=== PATIENT | male | born 1990 | race Caucasian/White ===

== ENCOUNTER 2017-04-15 19:26 | Emergency (ER) | payer OTHER ==
[~2017-04-15] VITALS: Ht 188 cm; Wt 117.5 kg
[2017-04-15 20:30] VITALS: BP 142/82
[2017-04-15 21:30] VITALS: BP 138/72
[2017-04-15] MEDS ORDERED: Bactrim DS (160mg/800mg) tab ORAL ONE (21:45)
[2017-04-15] MEDS ORDERED: IBUPROFEN600 MG ORAL (21:48)
[2017-04-15] MEDS ORDERED: BACTRIM DS TAB1 EAC1 ORAL (21:48)
--- NOTE | 2017-04-15 21:48 | Emergency Room Report ---
History of Present Illness General Chief Complaint: Pain Source: Patient Present Illness HPI This is a 27-year-old male with a history upon nitroglycerin abscess when he was younger. He had had a 90 done he was 16 years old. He had an abscess in the same area starting 3 days ago. Pain with sitting. No trauma. No fever chills but no drainage. Denies any other complaint. Allergies: Coded Allergies: CEFAZOLIN (Verified Allergy, Unknown, 04/15/17) Patient History Past Medical History: see triage record, old chart reviewed Past Surgical History: other Pertinent Family History: none Social History: Reports: drug use - history Immunizations: other Reviewed Nursing Documentation: PMH: Agreed, PSxH: Agreed Review of Systems Eye: Denies: eye pain, blurred vision ENT: Denies: ear pain, nose congestion, throat swelling Respiratory: Denies: cough, shortness of breath Cardiovascular: Denies: chest pain, palpitations Gastrointestinal: Denies: abdominal pain, diarrhea, nausea, vomiting Musculoskeletal: Denies: back pain, joint pain Skin: Denies: rash Neurological: Denies: headache, numbness Endocrine: Denies: increased thirst, increased urine Hematologic/Lymphatic: Denies: easy bruising All Other Systems: negative except mentioned in HPI Physical Exam Vital Signs Date Time Temp Pulse Resp B/P (MAP) Pulse Ox O2 Delivery O2 Flow Rate FiO2 04/15/17 20:17 98.1 85 18 142/82 98 vitals normal Sp02 EP Interpretation: reviewed, normal General Appearance: well appearing, no apparent distress, alert Head: normocephalic, atraumatic Eyes: bilateral eye PERRL, bilateral eye EOMI ENT: hearing grossly normal, normal pharynx Neck: full range of motion, supple, no meningismus Respiratory: chest non-tender, lungs clear, normal breath sounds Cardiovascular #1: regular rate, rhythm, no murmur Gastrointestinal: normal bowel sounds, non tender, no mass, no organomegaly, no bruit, non-distended Rectal: other - fluctuant area of 2cm Musculoskeletal: back normal, gait/station normal, normal range of motion Psychiatric: mood/affect normal Skin: warm/dry Procedures Incision and Drainage Incision and Drainage : Consent: Verbal Site: pilonidal Blade Size: 11 I & D Procedure: betadine prep Wound Location: back Wound Explored: clean Anesthesia: 1% Lidocaine Volume Anesthetic (ccs): 5 Patient Tolerated: Well Complications: None Progress moderate amt of pus express. Medical Decision Making Diagnostic Impression: Primary Impression: Pilonidal abscess ER Course She presents with a small upon I don't abscess. He was I&D. Patient tolerated procedure without a problem. I put him on Bactrim to cover for MRSA. No deep infection. No necrotizing fasciitis. We'll discharge home. Last Vital Signs Date Time Temp Pulse Resp B/P (MAP) Pulse Ox O2 Delivery O2 Flow Rate FiO2 04/15/17 20:30 98.1 85 18 142/82 98 Status: improved Disposition: HOME, SELF-CARE Condition: Stable Scripts Ibuprofen* (MOTRIN*) 600 Mg Tablet 600 MG ORAL Q8H Y for For Pain, #30 TAB 0 Refills Prov: MICKIE MCCORMICK M.D. 04/15/17 Trimethoprim/Sulfamethoxazole 160/800* (BACTRIM DS TABLET*) 1 Each Tablet 1 TAB ORAL Q12H, #14 TAB 0 Refills Prov: MICKIE MCCORMICK M.D. 04/15/17 Referrals: [facility],REFERRING (PCP) Additional Instructions: Followup with your DrBeatrice in 2 to 3 days for wound check. Return if symptom worsen. MICKIE MCCORMICK M.D. Apr 15, 2017 21:48
[2017-04-15 21:53] VITALS: BP 138/72
== END 2017-04-15 21:53 | disposition home or self-care (01) ==
LOC: EMR 21:09
DX: L05.01 Pilonidal cyst with abscess (principal); Z88.1 Allergy status to other antibiotic agents
CPT/HCPCS: 10060; 99284

== ENCOUNTER 2017-10-01 14:04 | Emergency (ER) | payer OTHER ==
[~2017-10-01] VITALS: Ht 188 cm; Wt 113.4 kg
[~2017-10-01 14:04] MED LIST: BACTRIM DS TAB1 EAC1 ORAL; IBUPROFEN600 MG ORAL
[2017-10-01 14:17] VITALS: BP 145/72
[2017-10-01 14:34] VITALS: BP 139/85
[2017-10-01] MEDS ORDERED: PROMETHAZINE-C118 M1 ORAL (14:42)
[2017-10-01] MEDS ORDERED: TYLENOL EXTRA500 MG ORAL (14:42)
[2017-10-01] MEDS ORDERED: ZITHROMAX250 MG ORAL (14:42)
[2017-10-01] MEDS ORDERED: Ketorolac 30mg Inj IM ONE (14:45)
[2017-10-01] MEDS ORDERED: Dexamethasone 4mg/ml vial IM ONE (14:45)
--- NOTE | 2017-10-01 14:45 | Emergency Room Report ---
History of Present Illness General Chief Complaint: Upper Respiratory Illness Source: Patient Present Illness HPI 27 yo male patient presents to ER complaining of cough, sore throat, and flu- like symptoms x1 day. Patient reports dry cough. Also reports earache and diarrhea during this time; reports watery diarrhea; denies blood; denies recent travel. Denies diarrhea currently. Denies chest pain, SOB, fever. Denies abdominal pain, rash. Reports able to eat food and drink fluids. Reports taking Ibuprofen yesterday for relief of symptoms; denies taking medication today. Reports hx of sick contacts; children and recently sick with flu-like symptoms. Allergies: Coded Allergies: CEFAZOLIN (Verified Allergy, Unknown, 04/15/17) Patient History Past Medical History: see triage record Reviewed Nursing Documentation: PMH: Agreed, PSxH: Agreed Nursing Documentation-PMH Past Medical History: No Stated History Review of Systems All Other Systems: negative except mentioned in HPI Physical Exam Vital Signs Date Time Temp Pulse Resp B/P (MAP) Pulse Ox O2 Delivery O2 Flow Rate FiO2 10/01/17 14:06 99.1 127 18 145/72 98 Room Air 99.1 Sp02 EP Interpretation: reviewed, normal General Appearance: well appearing, no apparent distress, alert, GCS 15, non- toxic Head: normocephalic, atraumatic Eyes: bilateral eye normal inspection, bilateral eye PERRL ENT: normal pharynx, no angioedema, normal voice, TMs + canals normal, uvula midline, moist mucus membranes, nasal congestion, tonsillar swelling, pharyngeal erythema Neck: full range of motion, supple, no bony tend, other - non-tender Respiratory: lungs clear, normal breath sounds, no rhonchi, no respiratory distress, no accessory muscle use, no wheezing, speaking full sentences, other - no stridor Cardiovascular #1: regular rate, rhythm, no edema Gastrointestinal: normal bowel sounds, non tender, soft, no mass, non-distended , no guarding, no rebound Genitourinary: no CVA tenderness Musculoskeletal: back normal, digits/nails normal, gait/station normal, normal range of motion, non-tender, no calf tenderness, Zana's Sign negative Neurologic: alert, oriented x3, responsive, motor strength/tone normal, sensory intact, normal gait Psychiatric: mood/affect normal Skin: no rash Lymphatic: no adenopathy Medical Decision Making PA Attestation Dr. Boswell is my supervising Physician whom patient management has been discussed with. Diagnostic Impression: Primary Impression: Tonsillitis ER Course Pt presents to ED c/o sore throat and fever. DDX considered but are not limited to pharyngitis, laryngitis, URI, peritonsillar abscess, tonsillitis, retropharyngeal abscess. Low suspicion for peritonsillar abscess and retropharyngeal abscess: patient able to talk without difficulty, swallow food, full ROM of neck, uvula midline, no SOB. Patient able to eat food without difficulty. Tonsillar swelling and erythema noted bilaterally. Patient was observed talking, laughing, and smiling without difficulty. VITAL SIGNS are WNL, patient is afebrile. Patient pulse mildly elevated. Low concern regarding elevated pulse: No chest pain, no SOB, negative Zana sign , no leg swelling bilaterally. Patient instructed to follow up with primary care provider for further treatment and referral as needed. ER COURSE -Dexamethasone -Toradol -Informed patient likely tonsillitis. Patient instructed she needs strict followup in 48 hours to check on course of symptoms. Informed diarrhea likely viral cause, does not require treatment at this time. Return if symptoms worsen or blood in stool. Keep hydrated, drink plenty of fluids. Patient reports feeling much better following administration of medication. Patient states ready to be discharged home. Patient reports understanding and agreement to treatment plan. DISCHARGE: Patient has allergy to penicillin medications. Rx provided for Azithromycin. Rx provided for Tylenol Rx provided for cough syrup with codeine. At this time pt is stable for d/c to home. Patient resting comfortably, nontoxic appearing, able to drink fluids without difficulty. Will provide with patient care instructions and any necessary prescriptions. Patient to take medication as instructed. Care plan and follow-up instructions provided. Patient questions asked and answered. Patient reprots understanding and agreement to treatment plan. Patient instructed to follow-up with primary care provider in 48 hours. ER precautions given. Patient instructed to return to ER immediately for any new or worsening of symptoms including but not limited to persistent fever, difficulty breathing, change in voice, SOB. Last Vital Signs Date Time Temp Pulse Resp B/P (MAP) Pulse Ox O2 Delivery O2 Flow Rate FiO2 10/01/17 14:17 127 18 Room Air 10/01/17 14:17 99.1 145/72 98 99.1 Disposition: HOME, SELF-CARE Condition: Stable Scripts Codeine/Promethazine Hcl* (PROMETHAZINE-CODEINE SYRUP*) 118 Ml Syrup 5 ML ORAL Q6H Y for For Cough for 7 Days, #118 ML 0 Refills Prov: Feroz Murphy 10/01/17 Azithromycin* (ZITHROMAX*) 250 Mg Tablet 250 MG ORAL DAILY, #6 TAB 0 Refills Take two tables once daily for 1 day, then one tablet once daily for 4 days. Prov: Feroz Murphy 10/01/17 Acetaminophen* (TYLENOL EXTRA STRENGTH*) 500 Mg Tablet 500 MG ORAL Q8H Y for Prn Headache/Temp > 101, #30 TAB 0 Refills Prov: Feroz Murphy 10/01/17 Patient Instructions: Tonsillitis, [id number] Additional Instructions: Followup with primary care provider in 48 hours to monitor status of symptoms. Return to ER if unable to make appointment with primary care provider. Take medications as directed. Patient questions asked and answered. ER precautions given, patient instructed to return to ER immediately for any new or worsening of symptoms. Feroz Murphy Oct 01, 2017 14:45
[2017-10-01 15:22] VITALS: BP 138/96
== END 2017-10-01 15:25 | disposition home or self-care (01) ==
LOC: EMR 14:20
DX: J03.90 Acute tonsillitis, unspecified (principal); Z88.1 Allergy status to other antibiotic agents
CPT/HCPCS: 96372; 99284; J1100; J1885

== ENCOUNTER 2018-11-16 22:27 | Emergency (ER) | payer OTHER ==
[~2018-11-16] VITALS: Ht 188 cm; Wt 120.2 kg
[2018-11-16 22:27] VITALS: BP 145/83
[~2018-11-16 22:27] MED LIST changes: +PROMETHAZINE-C118 M1 ORAL; +TYLENOL EXTRA500 MG ORAL; +ZITHROMAX250 MG ORAL
--- NOTE | 2018-11-16 22:27 | NUR ---
ED Nurse Note: Pt arrived ED from home, c/o left thumb abscess for 5 days after hurt at work. Pt is A/O X4. Pt left thumb was redness, swollen with abscess. Vital signs stable at this time, waiting for orders.
--- NOTE | 2018-11-16 22:53 | Emergency Room Report ---
History of Present Illness General Chief Complaint: Skin Rash/Abscess Source: Patient Present Illness HPI Is a 28-year-old male who is right-handed. He presents with chief complaint of left thumb infection. This occurred 4 days ago. This occurred after he removed a hangnail. He works around dirty environment. He said he got worse 2 days ago and today really swell up. There is no fever or chills. Pain is throbbing in nature. 8 out of 10. Worse with movement. Worse with palpation. No drainage. No fever chills but no nausea no vomiting. Allergies: Coded Allergies: CEFAZOLIN (Verified Allergy, Unknown, 04/15/17) Patient History Past Medical History: see triage record, old chart reviewed Past Surgical History: none Pertinent Family History: none Social History: Denies: drug use Immunizations: other Reviewed Nursing Documentation: PMH: Agreed; PSxH: Agreed Nursing Documentation-PM Past Medical History: No History, Except For Review of Systems Eye: Denies: eye pain, blurred vision ENT: Denies: ear pain, nose congestion, throat swelling Respiratory: Denies: cough, shortness of breath Cardiovascular: Denies: chest pain, palpitations Gastrointestinal: Denies: abdominal pain, diarrhea, nausea, vomiting Musculoskeletal: Denies: back pain, joint pain Skin: Denies: rash Neurological: Denies: headache, numbness Endocrine: Denies: increased thirst, increased urine Hematologic/Lymphatic: Denies: easy bruising All Other Systems: negative except mentioned in HPI Physical Exam Vital Signs Date Time Temp Pulse Resp B/P (MAP) Pulse Ox O2 Delivery O2 Flow Rate FiO2 11/16/18 22:30 99.0 79 18 147/87 95 Room Air vitals unremarkable Sp02 EP Interpretation: reviewed, normal General Appearance: well appearing, no apparent distress, alert Head: normocephalic, atraumatic Eyes: bilateral eye PERRL, bilateral eye EOMI ENT: hearing grossly normal, normal pharynx Neck: full range of motion, supple, no meningismus Respiratory: chest non-tender, lungs clear, normal breath sounds Cardiovascular #1: regular rate, rhythm, no murmur Gastrointestinal: normal bowel sounds, non tender, no mass, no organomegaly, no bruit, non-distended Musculoskeletal: back normal, gait/station normal, normal range of motion, other - Left thumb: There is a apparently kill on the pedal aspect tracking up to the cuticle. No felon. Psychiatric: mood/affect normal Skin: warm/dry Procedures Incision and Drainage Incision and Drainage : Consent: Verbal Site: Left thumb Blade Size: 11 I & D Procedure: betadine prep Wound Location: upper extremity - Left thumb Patient Tolerated: Well Complications: None Progress Using 11 blade scalpel, I ran it along the nail and there was moderate amount of pus expressed. Patient tolerated procedure without any problem. Medical Decision Making Diagnostic Impression: Primary Impression: Paronychia of finger of left hand ER Course Patient with a paronychia of the left thumb. No evidence of felon or deep infection. No necrotizing fasciitis. No foreign body. Last Vital Signs Date Time Temp Pulse Resp B/P (MAP) Pulse Ox O2 Delivery O2 Flow Rate FiO2 11/16/18 22:30 99.0 79 18 147/87 95 Room Air Status: improved Disposition: HOME, SELF-CARE Condition: Stable Scripts Trimethoprim/Sulfamethoxazole 160/800* (BACTRIM DS TABLET*) 1 Each Tablet 1 TAB ORAL Q12H, #14 TAB 0 Refills Prov: David Aguilar MD 11/16/18 Additional Instructions: Keep wound clean. Follow-up with your doctor in 7 days for recheck. Return if worse. David Aguilar MD Nov 16, 2018 22:53
[2018-11-16] MEDS ORDERED: BACTRIM DS TAB1 EAC1 ORAL (23:12)
[2018-11-16] MEDS ORDERED: Bacitracin Oint UD TOPIC ONE (23:15)
[2018-11-16 23:38] VITALS: BP 147/87
--- NOTE | 2018-11-16 23:38 | NUR ---
ER DISCHARGE NOTE: Patient is cleared to be discharged per Dr. Aguilar. I& D done by , dressing applied. Pain Meds given as ordered. Pt is A/O x4 on room air with stable vital signs. Pt was given D/C instructions and was able to verbalize understanding. Pt's ID band removed. Pt is able to ambulate with steady gait and took all belongings.
== END 2018-11-16 23:38 | disposition home or self-care (01) ==
LOC: EMR 23:04
DX: L03.012 Cellulitis of left finger (principal); Z88.8 Allergy status to other drugs, medicaments and biological substances
CPT/HCPCS: 99283